=== PATIENT | female | born 1935 | race Caucasian/White ===

== ENCOUNTER 2023-11-07 03:43 | Emergency (ER) | payer MEDICARE, MEDICAID ==
[~2023-11-07] VITALS: Ht 144.8 cm; Wt 35.2 kg
[2023-11-07 04:13] LABS: EOSINOPHILS % (AUTO) 0 % (1.0-6.0); HEMATOCRIT 36.9 % (36-46); LYMPHOCYTES # (AUTO) 0.4 K/uL (1.0-4.8); LYMPHOCYTES % (AUTO) 2.1 % (22.0-44.0); MEAN CORPUSCULAR HGB CONC 32.4 G/dL (31.0-37.0); MEAN CORPUSCULAR VOLUME 90 fL (80-100); MONOCYTES # (AUTO) 0.7 K/uL (0.1-1.0); MONOCYTES % (AUTO) 3.6 % (2.0-9.0); NEUTROPHILS # (AUTO) 18.9 K/uL (1.8-7.7); PLATELET COUNT (AUTO) 147 K/uL (150-450); RED BLOOD CELL COUNT(AUTO) 4.13 MIL/uL (4.00-5.20); RED CELL DISTRIBUTION WIDTH 15.7 % (11.5-14.5)
[2023-11-07] MEDS: MORPHINE SULFATE 4 MG/ML SYRINGE IVP ONE (04:14)
[2023-11-07] MEDS: ONDANSETRON HCL 4 MG/2 ML VIAL IVP ONE (04:15)
[2023-11-07 04:17] LABS: NEUTROPHILS % (AUTO) 94.3 % (40.0-70.0)
[2023-11-07 04:20] LABS: CALCIUM, TOTAL 8.9 mg/dL (8.8-10.5); CREATININE 1.17 mg/dL (0.60-1.30); POTASSIUM 3.8 mmol/L (3.5-5.1)
[2023-11-07 04:30] LABS: ALBUMIN 2.7 g/dL (3.4-5.0); BILIRUBIN,TOTAL 1.4 mg/dL (0.1-1.0); TOTAL PROTEIN, SERUM 7.3 g/dL (6.4-8.2); TROPONIN I-HIGH SENSITIVITY 71 ng/L (<51)
[2023-11-07 11:51] VITALS: BP 147/87; PULSE 90; RESP 22
== END 2023-11-07 12:44 | disposition home or self-care (01) ==
LOC: EMS 03:45
DX: R62.7 Adult failure to thrive (principal); R09.89 Other specified symptoms and signs involving the circulatory and respiratory systems; R09.02 Hypoxemia; Z51.5 Encounter for palliative care
CPT/HCPCS: 99285; 96374; 71045; 96375; 80053; 82550; 83880; 84484; 85025; 36415; 93005; J2270; J2405